=== PATIENT | female | born 1940 | race Caucasian/White ===

== ENCOUNTER 2024-03-25 08:23 | Outpatient (CLI) | payer OTHER ==
[~2024-03-25 08:23] MED LIST: CIPRO500 MG PO; FOSAMAX70 MG PO; GAVISCON; PEPCID; TAMS0.4C PO; ULTRACET PO; ULTRAM50 MG PO; VASOTEC5 MG PO; ZOFRAN4 MG PO
== END 2024-03-25 08:34 | disposition home or self-care (01) ==
LOC: TOM 08:23
DX: R19.5 Other fecal abnormalities (principal)